=== PATIENT | male | born 1950 | race Caucasian/White ===

== ENCOUNTER 2018-09-26 20:29 | Emergency (ER) | payer MEDICARE, OTHER ==
[~2018-09-26 20:29] MED LIST: Iopamidol 370 76% 125 ML VIAL FS ONE
[2018-09-26] MEDS ORDERED: Sodium Chloride 0.9% 1,000 ML ONE (20:52)
[2018-09-26 21:18] LABS: #Basophils 0.1 thou/uL (0.0-0.2); #Eosinphils 0.1 thou/uL (0.0-0.7); #Lymphocytes 0.8 thou/uL (1.20-3.40); #Monocytes 0.4 thou/uL (0.11-0.59); #Neutrophils 8.5 thou/uL (1.40-6.50); %Basophils 0.7 % (0.0-1.0); %Eosinophils 1.4 % (0.0-10.0); %Monocytes 4.1 % (0.0-10.0); %Neutrophils 85.8 % (42.0-75.0); Mean Corpuscular HGB CONC 33.5 g/dL (32.0-36.0); Mean Corpuscular Volume 92.6 fL (78.0-98.0); Mean Platelet Volume 9.7 fL (7.4-10.4); Platelet Count 136 thou/uL (130-400); RBC Distribution Width 11.6 % (11.5-14.5); Red Blood Cell (RBC) Count 4.85 mill/uL (4.70-6.10); White Blood Cell (WBC) Count 9.9 thou/uL (4.8-10.8)
[2018-09-26 21:44] LABS: ALT (SGPT) 56 U/L (8-55); AST (SGOT) 44 U/L (5-34); Albumin 4.6 g/dL (3.4-4.8); Alkaline Phosphatase 84 U/L (40-150); Anion Gap 17 mmol/L (10-20); BUN (Urea Nitrogen) 19 mg/dL (8.4-25.7); Bilirubin, Total 0.8 mg/dL (0.2-1.2); Calc. Creatinine Clearance 0 mL/min (70-130); Calcium 9.5 mg/dL (7.8-10.44); Carbon Dioxide 23 mmol/L (23-31); Chloride 106 mmol/L (98-107); Estimated GFR-MDRD 75; Glucose 101 mg/dL (80-115); Potassium 3.8 mmol/L (3.5-5.1); Protein, Total 7.6 g/dL (5.8-8.1); Sodium 142 mmol/L (136-145)
--- NOTE | 2018-09-26 22:44 | CT ---
CT CHEST WITH CONTRAST WITH 3D VOLUME RENDERING: INDICATIONS: Short of breath. Cough. Elevated D-dimer. FINDINGS: There is extensive limitation due to patient motion. No definite large central PE at the pulmonary t runk or main pulmonary artery level. However, there is incomplete assessment at the segmental/subseg mental regions bilaterally, due to extensive motion and distortion of anatomy within these regions. No obvious lobar consolidation. Interstitium is not reliably assessed due to distortion by motion. No discrete pneumothorax or pleural fluid collection is seen. Incidentally imaged liver reveals hepa tic steatosis. There are densities of the gallbladder, indicating cholelithiasis. There is scattere d degenerative change of osseous structures. Thoracic kyphosis is present. Scattered atheroscleroti c vascular disease is seen. IMPRESSION: 1. Markedly limited examination by motion. There is no definite large central pulmonary embolus maninder ntified. 2. Probable cholelithiasis, as well as hepatic steatosis. This may be further assessed with a right upper quadrant ultrasound. 3. Additional details are as discussed above. POS: ANTONIO
[2018-09-26] MEDS ORDERED: Enoxaparin Sodium 80 MG/0.8 ML SYRINGE ONE (22:51)
[2018-09-26] MEDS ORDERED: Enoxaparin Sodium 40 MG/0.4 ML SYRINGE ONE ×2 (22:51→22:54)
[2018-09-26] MEDS ORDERED: Enoxaparin Sodium 60 MG/0.6 ML SYRINGE ONE (22:53)
[2018-09-27] MEDS ORDERED: Enoxaparin Sodium 60 MG/0.6 ML SYRINGE ONE (00:35)
[2018-09-27] MEDS ORDERED: Enoxaparin Sodium 40 MG/0.4 ML SYRINGE ONE (00:35)
== END 2018-09-27 01:07 | disposition short-term general hospital (02) ==
LOC: MADERS 20:29
DX: R06.02 Shortness of breath (principal); R09.02 Hypoxemia; J44.9 Chronic obstructive pulmonary disease, unspecified; Z87.891 Personal history of nicotine dependence; Z79.899 Other long term (current) drug therapy
CPT/HCPCS: 71046; 71275; 80053; 83605; 83880; 85025; 85379; 87040; 87804; 93005; 94760; 96360; 96372; J1650; J7050; J7620; Q9967

== ENCOUNTER 2024-08-24 00:31 | Emergency (ER) | payer MEDICARE, OTHER ==
[2024-08-24] MEDS ORDERED: Boostrix 0.5 ML (Tdap) VIAL (>/=7 yrs of age) ONE (00:48)
[2024-08-24] MEDS ORDERED: Lidocaine 1% w/Epinephrine 1:100K 20 ML VIAL ONE ×2 (00:50→01:05)
[2024-08-24] MEDS ORDERED: Doxycycline 100 MG CAP ONE (01:52)
== END 2024-08-24 02:20 | disposition home or self-care (01) ==
LOC: MADERS 00:31
DX: S81.811A Laceration without foreign body, right lower leg, initial encounter (principal); I48.91 Unspecified atrial fibrillation; I10 Essential (primary) hypertension; J44.9 Chronic obstructive pulmonary disease, unspecified; E78.5 Hyperlipidemia, unspecified; W26.8XXA Contact with other sharp object(s), not elsewhere classified, initial encounter; Z23 Encounter for immunization; Z79.01 Long term (current) use of anticoagulants; Z87.891 Personal history of nicotine dependence
CPT/HCPCS: 12005; 90471; 90715